=== PATIENT | male | born 1945 | race Caucasian/White ===

== ENCOUNTER 2023-09-04 06:16 | Day surgery (SDC) | payer OTHER ==
[2023-09-02 11:05] LABS: Potassium 4.4 mEq/L (3.5-5.1)
[2023-09-04] MEDS ORDERED: Ringers Lactate 1,000 ML IV ONE (06:38)
[2023-09-04 09:25] VITALS: BP 104/74; TEMP 97.5; O2SAT 94
--- NOTE | 2023-09-08 14:08 | EKG ---
Test Date: 2023-09-02 Test Time: 11:39:40 [employer]: CASI MEASUREMENT RESULTS: Intervals: Rate: 69 MN: 174 QRSD: 94 QT: 384 QTc: 411 Wisner: P: 34 MN: 174 QRS: 40 T: 51 INTERPRETIVE STATEMENTS: Normal sinus rhythm Normal ECG No previous ECG available for comparison Electronically Signed On 09-08-23 13:47:46 ELECTROTHERAPIST by Jose Eduardo Crow
== END 2023-09-04 09:32 | disposition home or self-care (01) ==
LOC: OR 06:16
PROVIDERS: ATTEND Surgery
PROC: 0DBL8ZX Excision of Transverse Colon, Via Natural or Artificial Opening Endoscopic, Diagnostic (ICD-10-PCS; principal; 2023-09-04 07:30)
DX: R19.5 Other fecal abnormalities (principal); K64.8 Other hemorrhoids; D12.3 Benign neoplasm of transverse colon
CPT/HCPCS: 93005; 80048; 36415; 88305; 45385; J7120